=== PATIENT | male | born 1995 | race Asian ===

== ENCOUNTER 2017-03-25 12:46 | Emergency (ER) | payer OTHER ==
[2017-03-25 12:53] VITALS: BP 121/72; PULSE 60; TEMP 36.8; O2SAT 99
--- NOTE | 2017-03-25 13:07 | EMERGENCY ROOM VISIT NOTE ---
ED Visit Note First contact with patient: 12:56 CHIEF COMPLAINT: Left Ankle injury HISTORY OF PRESENT ILLNESS: This 21 patient sustained an injury to the left ankle with a twisting, inversion motion on Wednesday when he was playing basketball. The patient states that he was unable to walk on his foot that evening and yesterday. He is able to put some weight on the leg today. The patient denies any numbness and tingling in his toes. Patient denies any knee pain. The patient states that he is here because he was unable to walk to his class yesterday and missed a quiz. the professor told him he needed documentation that he has a ankle sprain. REVIEW OF SYSTEMS: 6 system review was performed and was negative unless stated otherwise in history of present illness. PMH: No prior significant ankle injury. The patient is generally healthy with no chronic medical problems or a history of major surgery. SOCIAL HISTORY: Patient is a [employer] student. The patient denies tobacco use but admits to occasional alcohol use. PHYSICAL EXAM: Vital Signs: Were reviewed Reviewed Nurse's notes. GEN.: 21-year -old male appears in no acute distress. MENTAL STATUS: Alert, oriented, and cooperative. LEFT ANKLE: The ankle is swollen and tender and ecchymotic over the lateral aspect but the skin is intact and there is no ligamentous instability. There is no deformity. The foot and toes are warm and well- perfused. Sensation to pain and light touch is intact. EMERGENCY DEPARTMENT COURSE: The patient was evaluated. I recommended that the patient get an x-ray today but he refused. The patient also refused a gel splint and crutches. The patient was discharged home in stable condition. DIAGNOSIS: Left ankle sprain DISCHARGE INSTRUCTIONS: Ibuprofen 600 mg every 6 hours with food for pain. Ice and elevation as much as possible over the next 24 hours. If symptoms persist or worsen, follow-up with [facility] for referral to orthopedics. You were seen in the ER today and diagnosed with a severe ankle sprain. Vital Signs Date Time Temp Pulse Resp B/P (MAP) Pulse Ox O2 Delivery O2 Flow Rate FiO2 03/25/17 12:53 36.8 60 20 121/72 99 Room Air Departure Information Patient Instructions My [facility] [address]
== END 2017-03-25 13:20 | disposition home or self-care (01) ==
LOC: C.EDB 12:48 → C.EDD 13:20
DX: S93.402A Sprain of unspecified ligament of left ankle, initial encounter (principal); X50.1XXA Overexertion from prolonged static or awkward postures, initial encounter; Y93.67 Activity, basketball; Y99.8 Other external cause status